=== PATIENT | male | born 1980 | race African-American/Black ===

== ENCOUNTER 2022-02-11 01:59 | Emergency (ER) | payer MEDICAID ==
[~2022-02-11] VITALS: Ht 172.7 cm; Wt 61.2 kg
[2022-02-11] MEDS ORDERED: NITROGLYCERIN 0.4MG TABLET SL SL PRN (02:15)
[2022-02-11] MEDS ORDERED: ASPIRIN 81MG TABLET PO ONE (02:15)
[2022-02-11 03:02] LABS: BASOPHILS % 0.6 % (0.0-2.0); EOSINOPHILS % 0.6 % (0.0-5.0); HEMATOCRIT. 45.5 % (42.0-52.0); MEAN CORPUSCULAR HEMOGLOBIN 27.3 pg (28.0-32.0); MEAN CORPUSCULAR VOLUME 83.1 fL (80.0-94.0); MEAN PLATELET VOLUME 8.3 fl (7.4-10.4); MONOCYTES % 4.9 % (2.0-8.0); NEUTROPHILS % 75.9 % (40.0-76.0); PLATELET 312 x1000/uL (130-400); RED BLOOD CELL COUNT 5.47 mill/uL (4.7-6.1); RED CELL DISTRIBUTION WIDTH 13.6 % (11.6-14.6)
[2022-02-11 03:11] LABS: CHLORIDE 105 mEq/L (98-107)
[2022-02-11 03:20] LABS: ETHANOL BLOOD 31 mg/dL
[2022-02-11 07:11] VITALS: BP 108/78
[2022-03-23] MEDS ORDERED: ATOR10TA69 MT (02:31)
[2022-03-23] MEDS ORDERED: SPIR25TA6 MT (02:31)
[2022-03-23] MEDS ORDERED: BENA5TAB40 MT (02:31)
[2022-03-23] MEDS ORDERED: FURO40TA5 MT (02:31)
[2022-03-23] MEDS ORDERED: ASPI-1406 MT (06:04)
== END 2022-02-11 07:32 | disposition home or self-care (01) ==
LOC: ER 01:59
DX: R07.89 Other chest pain (principal); F15.10 Other stimulant abuse, uncomplicated; F17.200 Nicotine dependence, unspecified, uncomplicated; F12.10 Cannabis abuse, uncomplicated; I50.9 Heart failure, unspecified; Z88.0 Allergy status to penicillin
CPT/HCPCS: 36415; 71045; 80053; 80320; 83880; 84484; 85025; 93005; 99285; Z7610; G0480